=== PATIENT | female | born 1975 | race Caucasian/White ===

== ENCOUNTER → 2018-12-16 17:00 | Outpatient (CLI) | payer OTHER, SELFPAY | PROVIDERS: Family Provider Family Medicine; PCP Family Medicine; Referring Provider Family Medicine; Visit Provider Family Medicine | DX: R93.6 Abnormal findings on diagnostic imaging of limbs (principal); M19.019 Primary osteoarthritis, unspecified shoulder ==

== ENCOUNTER 2025-02-04 14:01 | Emergency (ER) | payer SELFPAY ==
[2025-02-04 14:02] VITALS: BP 95/82; PULSE 87; RESP 18; TEMP 36.8; O2SAT 98; BMI 31.3
--- NOTE | 2025-02-04 14:22 | CT_ITS ---
PROCEDURE: BRAIN/HEAD WITHOUT CONTRAST 02/04/2025 REASON FOR EXAM: INJURY TECHNIQUE: Procedure Code: CTBR Modality: CT Procedure: BRAIN/HEAD WITHOUT CONTRAST Coronal and Sagittal reconstruction series were provided. One or more dose reduction techniques were used (e.g., Automated exposure control, adjustment of the mA and/or kV according to patient size, use of iterative reconstruction technique. RADIATION DOSE SUMMARY: CTDlvol: 45 mGy DLP: 796 mGycm COMPARISON: None FINDINGS: Brain: There is no evidence of hemorrhage, acute ischemia or mass. No extra- axial fluid collection, midline shift or mass effect. CSF Spaces: Normal Sinuses/Mastoids: Clear Bones: No fracture CT/Brain/Head without Contrast IMPRESSION: No acute abnormality Reading Location: [id number]
--- NOTE | 2025-02-04 14:50 | EDS_ITS ---
HPI History of Present Illness Chief Complaint: Fall Informant: patient and spouse/S.O. Narrative Narrative: 49-year-old female presenting to the emergency room with a chief complaint of head injury. Patient states that a couple days ago she fell while sitting on the couch striking her back of her head against a wooden wall. She states that yesterday she continued to have all their generalized headache mostly left frontal and left parietal. She states that she has blurry vision. No vomiting like nausea. She denies any arm or leg symptoms. No seizures. She does not take any blood thinners. Posterior denies any neck or back pain. [facility] Medical History History of PCOS Kidney stones Home Medications ?Medication ?Instructions ?Recorded ?Last Taken ?Type Ibuprofen [Motrin] 800 mg PO TID PRN PRN Headac he 07/08/15 Unknown History ibuprofen 600 mg tablet 600 mg PO Q6H PRN PRN Pain # #60 07/15/15 Unknown Rx oxycodone-acetaminophen 5 mg-325 1 - 2 tab PO Q6H PRN PRN Pain #40 07/15/15 Unknown Rx mg tablet tabs naproxen 500 mg tablet 500 mg PO BID PRN #20 tabs 1 04/03/16 Unknown Rx oxycodone-acetaminophen 5 mg-325 1 tab PO Q6H PRN PRN Pain ##12 01/31/17 Unknown Rx mg tablet penicillin V potassium 500 mg 500 mg PO 4X/DAY #40 tab s 01/31/17 Unknown Rx tablet Allergy/AdvReac Type Severity Reaction Status Date / Time acetaminophen (From Vicodin) Allergy Intermediate Itching Verified 02/04/25 14:02 hydrocodone AdvReac Rash Verified 02/04/25 14:02 Family History Father Hypertension Surgical History Hx of cholecystectomy H/O: hysterectomy Social History household members: spouse, family and children housing: house Smoking Status: Never smoker ROS ROS ED Constitutional Constitutional ED: Denies chills or weight loss Eyes Eyes: Reports blurry vision; Denies change in vision or diplopia ENT ENT ED: Denies ear pain, rhinorrhea or sore throat Cardiovascular Cardiovascular: Denies chest pain, orthopnea, palpitations or racing heartbeat Respiratory/Chest Respiratory/Chest: Denies cough, dyspnea or orthopnea Gastrointestinal Gastrointestinal: Denies abdominal pain, diarrhea, nausea or vomiting Genitourinary Genitourinary ED: Denies dysuria, hematuria or urinary frequency Musculoskeletal Musculoskeletal: Denies arthralgias or myalgias Integumentary Denies abscess or rash Neurologic Neurologic: Reports headache(s); Denies paresthesias or weakness Psychiatric Psychiatric: Denies anxiety, depression, suicidal ideation or suicidal thoughts Endocrine Endocrinology: Denies polydipsia, polyphagia or polyuria Allergic/Immunologic Allergic/Immunologic ED: Denies mouth swelling, tongue swelling or urticaria EXAM Physical Exam Const Vital Signs: 02/04/25 14:02 Temperature 98.3 F Temperature Source Oral Pulse Rate 87 Respiratory Rate 18 Blood Pressure 95/82 H Blood Pressure Mean 86 Pulse Ox 98 Oxygen Delivery Method Room Air Positive well nourished and well developed General Appearance ED: well developed and NAD HEENT Reports normocephalic, head/scalp atraumatic and moist mucous membranes Eyes PERRL and EOMs intact bilaterally Neck no lymphadenopathy, supple and no JVD Resp normal respiratory effort and clear to auscultation bilaterally Cardio regular rate, regular rhythm and no murmurs GI normal to inspection, nondistended, normoactive bowel sounds and non-tender Palpation: soft Back/Spine no CVA tenderness and normal ROM Extremity normal to inspection General Extremety ED: Negative for edema General Extremity: Negative for edema Neuro oriented x3, CN's II-XII intact bilaterally, moves all extremities, no focal motor deficits and no sensory deficits noted Clyo Coma Scale: document GCS findings Spontaneous Obeys Commands Oriented 15 Sensorium / Orientation: alert Motor Exam: strength 5/5 throughout Psych mental status grossly normal Mood & Affect: Negative for depressed or tearful Skin no rashes or lesions noted and no wounds MDM MDM MDM Narrative Medical decision making narrative: Differential diagnosis includes but not limited to intracranial hemorrhage hematoma skull fracture concussion CT of the brain was obtained which does not demonstrate any intracranial hemorrhage or skull fracture or hematoma. Clinically I believe the patient has a concussion. Would recommend rest Tylenol or ibuprofen. Follow-up in 1 week if continued symptoms. History & Record Review Discussion w/independent historian: Patient and Significant other Radiography Diagnostic Testing: Clinical Impression(s) from Imaging Studies Brain CT 02/04/25 14:22 IMPRESSION: No acute abnormality Reading Location: [facility] Discharge Plan Triage Chief Complaint: Fall Other Complaint: Headache ED Provider: James Ling Dx/Rx/DC Orders Prescriptions: No Action Ibuprofen [Motrin] 800 MG tablet 800 mg PO TID PRN PRN (Reason: Headache) Patient Comments: PAIN/INFLAMMATION oxycodone-acetaminophen 1 TABLET tablet 1 - 2 tab PO Q6H PRN PRN (Reason: Pain) Qty: 40 0RF ibuprofen 600 MG tablet 600 mg PO Q6H PRN PRN (Reason: Pain) Qty: 60 1RF penicillin V potassium 500 MG tablet 500 mg PO 4X/DAY Qty: 40 0RF oxycodone-acetaminophen 1 TABLET tablet 1 tab PO Q6H PRN PRN (Reason: Pain) Qty: 12 0RF naproxen 500 MG tablet 500 mg PO BID PRN Qty: 20 0RF Primary Care Provider: Kd Berry Referrals: Kd Berry MD [Primary Care Provider, Family Practice] Print Language: Arabic
[2025-02-04 15:28] VITALS: BP 100/65; PULSE 71; RESP 18; TEMP 36.4; O2SAT 99
== END 2025-02-04 15:30 | disposition home or self-care (01) ==
PROVIDERS: Emergency Provider Emergency Medicine; PCP Family Medicine; Visit Provider Emergency Medicine
DX: R51.9 Headache, unspecified (principal); W08.XXXA Fall from other furniture, initial encounter
CPT/HCPCS: 70450; 99283